=== PATIENT | female | born 1935 | race Caucasian/White ===

== ENCOUNTER 2023-05-19 18:40 | Emergency (ER) | payer MEDICARE ==
[~2023-05-19] VITALS: Ht 165.1 cm; Wt 89.4 kg
[2023-05-19 18:56] VITALS: TEMP 98.2
[2023-05-19] MEDS ORDERED: hydrALAZINE HCL IV 20 MG VIAL ONE (19:15)
[2023-05-19] MEDS ORDERED: MECLIZINE HCL 25 MG TABLET ONE (19:16)
[2023-05-19] MEDS ORDERED: ONDANSETRON HCL/PF 4 MG/2 ML VIAL ONE (19:16)
[2023-05-19] MEDS ORDERED: ONDANSETRON HCL/PF 4 MG/2 ML VIAL IVP ONE (19:30)
[2023-05-19] MEDS ORDERED: IV NS 0.9% 500 ML BAG IV ONE (19:30)
[2023-05-19] MEDS ORDERED: MECLIZINE HCL 12.5 MG TABLET PO ONE (19:30)
[2023-05-19] MEDS ORDERED: hydrALAZINE HCL IV 20 MG VIAL IV ONE (19:30)
[2023-05-19 19:43] LABS: BASOPHILS # (AUTO) 0.1 K/uL (0.0-0.2); BASOPHILS % (AUTO) 0.7 % (0.0-2.0); EOSINOPHILS # (AUTO) 0.1 K/uL (0.0-0.7); EOSINOPHILS % (AUTO) 0.9 % (0.0-6.0); HEMATOCRIT 39 % (33-45); HEMOGLOBIN 12.4 g/dL (11.5-14.8); LYMPHOCYTES # (AUTO) 1.7 K/uL (0.8-4.8); LYMPHOCYTES % (AUTO) 16.3 % (20.0-44.0); MEAN CORPUSCULAR HEMOGLOBIN 27 PG (26.0-33.0); MEAN CORPUSCULAR HGB CONC 32 g/dl (31.0-36.0); MEAN CORPUSCULAR VOLUME 84 fL (82-100); MONOCYTES # (AUTO) 0.4 K/uL (0.1-1.30); NEUTROPHILS # (AUTO) 8.4 K/uL (1.8-8.9); NEUTROPHILS % (AUTO) 78.1 % (43.0-81.0); PLATELET COUNT (AUTO) 338 K/uL (150-450); RED BLOOD CELL COUNT(AUTO) 4.64 MIL/uL (4.0-5.2); RED CELL DISTRIBUTION WIDTH 14.5 % (11.5-15.0); WHITE BLOOD COUNT (AUTO) 10.7 K/uL (4.3-11.0)
[2023-05-19 19:56] LABS: CALCIUM, SERUM 9.1 mg/dL (8.5-10.1); CARBON DIOXIDE 29 mmol/L (21-32); CHLORIDE 98 mmol/L (98-107); CREATININE 0.8 mg/dL (0.6-1.3); GLUCOSE 313 mg/dL (74-106); POTASSIUM 3.6 mmol/L (3.5-5.1); SODIUM SERUM 136 mmol/L (136-145); UREA NITROGEN, BLOOD 20 mg/dL (7-18)
[2023-05-19 20:05] LABS: INR 1.03 (0.91-1.10); PARTIAL THROMBOPLASTIN TIME 27.9 SEC (24.3-34.3); PROTHROMBIN TIME 10.9 SECS (9.2-11.1)
[2023-05-19] MEDS ORDERED: MECL-159 PO ×2 (21:02→21:07)
[2023-05-19 21:38] VITALS: BP 141/72; O2SAT 99
== END 2023-05-19 21:39 | disposition home or self-care (01) ==
LOC: ER 19:03
DX: E11.65 Type 2 diabetes mellitus with hyperglycemia (principal); R42 Dizziness and giddiness; I10 Essential (primary) hypertension
CPT/HCPCS: 99285; 96374; 70450; 71045; 96375; 93005; 85025; 80048; 36415; 84484; 85730; J8597; J0360; J2405; J7040